=== PATIENT | female | born 1965 | race Caucasian/White ===

== ENCOUNTER → 2016-12-09 | Outpatient (CLI) | payer BC ==
[~2016-12-09] MED LIST: LRT5 PO
--- NOTE | 2016-12-09 12:34 | MAMMOGRAPHY REPORT ---
BILATERAL DIGITAL SCREENING MAMMOGRAM TOMOSYNTHESIS WITH CAD: 12/09/2016 CLINICAL HISTORY: Routine screening. Patient has no complaints. TECHNIQUE: Breast tomosynthesis in addition to standard 2D mammography was performed. Current study was also evaluated with a Computer Aided Detection (CAD) system. COMPARISON: Comparison is made to exams dated: 12/05/2015 mammogram, 12/01/2014 mammogram, 06/30/2014 b reast MRI, 06/27/2014 ultrasound, 06/27/2014 mammogram, and 12/14/2013 ultrasound - [facility]. BREAST COMPOSITION: The tissue of both breasts is heterogeneously dense, which may obscure small mas ses. FINDINGS: There is a 7 mm focal asymmetry in the 12:00 middle to anterior one third of the left [address], for which additional spot compression tomosynthesis views and possible ultrasound is recommended. No other suspicious mass, architectural distortion or cluster of microcalcifications is seen bilatera lly. IMPRESSION: ACR BI-RADS CATEGORY 0: INCOMPLETE EVALUATION: NEED ADDITIONAL IMAGING EVALUATION The 7 mm focal asymmetry in the 12:00 left breast needs additional evaluation. The patient will be called to schedule an appointment. Approximately 10% of breast cancers are not detected with mammography. A negative mammographic report should not delay biopsy if a clinically suggestive mass is present. Sera Soria M.D. ay/:12/09/2016 10:10:28 Svp Operations: Alejandrina Vitale, [facility] letter sent: Addl Imaging 0 BI-RADS Code: ACR BI-RADS Category 0: Incomplete Evaluation: Need Additional Imaging Evaluation
== END | disposition home or self-care (01) ==
LOC: C.MAMM 08:20
PROVIDERS: ATTEND Obstetrics & Gynecology
DX: Z12.31 Encounter for screening mammogram for malignant neoplasm of breast (principal); N64.89 Other specified disorders of breast

== ENCOUNTER → 2016-12-18 | Outpatient (CLI) | payer BC ==
--- NOTE | 2016-12-18 13:40 | MAMMOGRAPHY REPORT ---
UNILATERAL LEFT DIGITAL DIAGNOSTIC MAMMOGRAM TOMOSYNTHESIS AND TARGETED LEFT ULTRASOUND: 12/18/2016 CLINICAL HISTORY: Call back from screening mammography for a 7 mm focal asymmetry in the 12:00 left b reast. TECHNIQUE: Spot compression left CC and MLO 2-D and tomosynthesis images were obtained. COMPARISON: Comparison is made to exams dated: 12/05/2015 mammogram, 12/01/2014 mammogram, 06/27/2014 u ltrasound, 06/27/2014 mammogram, and 12/14/2013 ultrasound - [facility]. BREAST COMPOSITION: There are scattered areas of fibroglandular density in the left breast. FINDINGS: The additional spot compression 2-D and tomosynthesis views of the left breast demonstrate effacement of the 7 mm focal asymmetry in the 12:00 anterior left breast. There is no evidence of a persistent mass or architectural distortion in the visualized left breast. No suspicious cluster of microcalcifications. Targeted ultrasound was performed in the left breast 12:00, retroareolar and 6:00 axes. Sonographica lly normal tissue is seen without a discrete solid or cystic mass. IMPRESSION: ACR BI-RADS CATEGORY 2: BENIGN, TARGETED ULTRASOUND ACR BI-RADS CATEGORY 2: BENIGN There is effacement of the 7 mm focal asymmetry in the 12:00 left breast, and no suspicious sonograph ic correlate. This most likely represented overlapping fibroglandular tissue. There is no mammograp hic or targeted sonographic evidence of malignancy. Return to annual mammogram screening schedule is recommended. The patient has been verbally notified of the results. Approximately 10% of breast cancers are not detected with mammography. A negative mammographic report should not delay biopsy if a clinically suggestive mass is present. Sera Soria M.D. ay/:12/18/2016 09:54:39 Vaccine Specialist: Vanessa BURNS)(Demetra), [facility] letter sent: Normal 1/2 BI-RADS Code: ACR BI-RADS Category 2: Benign Ultrasound BI-RADS: ACR BI-RADS Category 2: Benign
== END | disposition home or self-care (01) ==
LOC: C.MAMM 08:29
PROVIDERS: ATTEND Obstetrics & Gynecology
DX: N64.89 Other specified disorders of breast (principal)

== ENCOUNTER → 2017-02-10 | Outpatient (CLI) | payer BC | END | disposition home or self-care (01) | LOC: C.PAPS 12:51 | PROVIDERS: ATTEND Obstetrics & Gynecology | DX: Z01.411 Encounter for gynecological examination (general) (routine) with abnormal findings (principal); R87.610 Atypical squamous cells of undetermined significance on cytologic smear of cervix (ASC-US) ==

== ENCOUNTER → 2017-06-20 | Outpatient (CLI) | payer BC | END | disposition home or self-care (01) | LOC: C.CPL 11:06 | PROVIDERS: ATTEND Surgery | DX: Z01.818 Encounter for other preprocedural examination (principal); L72.9 Follicular cyst of the skin and subcutaneous tissue, unspecified ==

== ENCOUNTER → 2017-07-04 | Day surgery (SDC) | payer BC ==
[2017-06-09 13:38] VITALS: Ht 160 cm; Wt 59.5 kg
[~2017-07-04] VITALS: Ht 160 cm; Wt 59.5 kg
[~2017-07-04] MED LIST changes: +ATROPINE SULFATE 0.1 MG/ML 5ML SYR IV PRN; +CEFOXITIN SOD 2000MG IV SCH; +EpHEDrine SULFATE INJ 50 MG/ML AMP IV PRN; +FENTANYL CITRATE INJ 50 MCG/1 ML 2 ML VIAL IV PRN; +FENTANYL CITRATE INJ 50 MCG/1 ML 2 ML VIAL ONE; +HYDR-5688 PO; +HYDROCODONE/ACETAMIN 5/325MG TAB PO PRN; +LACTATED RINGER'S 1000ML 1,000 ML IV SCH; +LIDOCAINE HCL 1% 20 ML VIAL ONE; +LIDOCAINE HCL 2% 2 ML VIAL (20MG/ML) ONE; -LRT5 PO; +MIDAZOLAM HCL 1 MG/ML 2ML VIAL ONE; +ONDANSETRON INJ 2 MG/ML 2 ML VIAL IV PRN; +PROPOFOL IV EMULSION 10 MG/ML 20 ML VIAL IV ONE; +SODIUM CHLORIDE 0.9% 1000ML 1,000 ML IV SCH
--- NOTE | 2017-07-04 10:16 | History & Physical Bridge - SC ---
H&P Re-Evaluation Bridge Note: I have examined the patient, reviewed the History & Physical and in the interval since the performance of the History & Physical I have noted the following changes of clinical significance: No changes noted
--- NOTE | 2017-07-04 11:46 | [facility] Operative Report ---
Operative Report Operative Date Jul 04, 2017. Pre-Operative Diagnosis Perianal Masses Post-Operative Diagnosis Same Procedure(s) Performed Perianal Mass (X1) Excision Surgeon Dr. Schumacher Chief Nuclear Medicine Technologist Surgeon(s) None Estimated Blood Loss 5cc Findings skin nodule Specimens A) Perianal Skin Lesion Drains None Anesthesia Type MAC Complication(s) none Disposition Recovery Room / PACU I attest to the content of the Intraoperative Record and any orders documented therein. Any exceptions are noted below.
[2017-07-04 11:52] VITALS: TEMP 36.3
--- NOTE | 2017-07-04 11:54 | Discharge Instructions-SurgCtr ---
Discharge Instructions Date of Service Jul 04, 2017. Visit Reason for Visit: Perianal Masses Discharge Discharge Diagnosis / Problem: perianal nodule Discharge Goals Goal(s): Decrease discomfort, Improve function, Improve disease control Activity Recommendations Activity Limitations: as noted below Lifting Limitations: gradually increase as tolerated Exercise/Sports Limitations: until after follow-up appointment May Resume Sexual Activity: when tolerated Shower/Bathe: tomorrow Driving or Machine Use: resume 1 day after discharge Anesthesia . Post Anesthesia Instructions: If you have had General Anesthesia or IV Sedation: * Do not drive today. * Resume driving when surgeon permits. * Do not make important decisions or sign legal documents today. * Call surgeon for: 1. Temperature elevations greater than 101 degrees F. 2. Uncontrollable pain. 3. Excessive bleeding. 4. Persistent nausea and vomiting. 5. Medication intolerance (nausea, vomiting or rash). * For nausea and vomiting use only clear liquids such as: tea, soda, bouillon until nausea subsides, then gradually increase diet as tolerated. * If you have any concerns or questions, call your surgeon's office. If physician is unavailable and it is an emergency, call 911 or go to the nearest emergency room. . Instructions / Follow-Up Instructions / Follow-Up SPECIAL CARE INSTRUCTIONS: * Cover incisions and change daily for comfort/drainage. May need a pad for 1- 2 weeks * May use ibuprofen for pain as tolerated. * Expect some swelling and bruising. Call your doctor if: * Temperature above 101 degrees * Pain not relieved by pain medicine ordered * There is increased drainage or redness from any incision * You have any unanswered questions or concerns [phone]. FOLLOW UP VISIT: If not already scheduled, please call the office for a follow-up visit. for 2 weeks- check up OFFICE PHONE NUMBER: Dr. Schumacher Office Diet Recommendations Home Diet: resume previous diet Procedures Procedures Performed: Perianal Mass (X1) Excision Pending Studies Studies pending at discharge: no Medical Emergencies . Who to Call and When: Medical Emergencies: If at any time you feel your situation is an emergency, please call 911 immediately. . Non-Emergent Contact Non-Emergency issues call your: Primary Care Provider, Surgeon . . "Provider Documentation" section prepared by Donnell Schumacher. .
[2017-07-04 12:24] VITALS: BP 105/70; PULSE 54; O2SAT 100
--- NOTE | 2017-07-04 12:28 | Anesthesia Progress Nt - [facility] ---
Anesthesia Post Op Note Date & Time Jul 04, 2017 at 12:28 Vital Signs Pain Intensity: 0 Vital Signs Past 12 Hours Date Time Temp Pulse Resp B/P (MAP) Pulse Ox O2 Delivery O2 Flow Rate FiO2 07/04/17 11:59 61 14 90/58 (69) 98 Room Air 07/04/17 11:52 36.3 65 14 88/52 (64) 98 Room Air 07/04/17 10:04 36.9 58 16 126/62 (83) 99 Room Air Notes Mental Status: alert / awake / arousable, participated in evaluation Pt Amnestic to Procedure: Yes Nausea / Vomiting: adequately controlled Pain: adequately controlled Airway Patency, RR, SpO2: stable & adequate BP & HR: stable & adequate Hydration State: stable & adequate Anesthetic Complications: no major complications apparent
--- NOTE | 2017-07-04 12:48 | OPERATIVE REPORT ---
DATE OF OPERATION: 07/04/2017 NAME OF OPERATION: Excision of 2 cm perianal lesion. PREOPERATIVE DIAGNOSIS: Perianal skin lesion. POSTOPERATIVE DIAGNOSIS: Same. STAFF SURGEON: Dr. Schumacher. ANESTHESIA: Sedation with 1% plain lidocaine. PROCEDURE: The patient was placed on the operating room table in the prone position. Her buttocks were gently taped apart. She had a skin nodule on the right perianal area. The skin and subcutaneous tissue were anesthetized using 1% plain lidocaine and then the nodule excised. It was approximately 2 cm in length, sent for routine pathology. The skin was then reapproximated using interrupted 4-0 chromic suture. Dressing applied and patient transferred to recovery room in stable condition. I attest to the content of the Intraoperative Record and any orders documented therein. Any exception s are noted below.
== END | disposition home or self-care (01) ==
LOC: X.SURG 09:48
PROVIDERS: ATTEND Surgery
DX: L72.0 Epidermal cyst (principal); F17.200 Nicotine dependence, unspecified, uncomplicated; Z82.49 Family history of ischemic heart disease and other diseases of the circulatory system; Z83.3 Family history of diabetes mellitus; Z82.3 Family history of stroke; Z80.3 Family history of malignant neoplasm of breast

== ENCOUNTER 2024-07-29 23:47 | Observation (INO) ==
--- NOTE | 2024-07-30 00:12 | Emergency Department Note ---
History of Present Illness General Chief complaint: Hip Pain Stated complaint: PAIN ALONG RIGHT HIP DOWN INTO ABD AREA Time Seen by Provider: 07/30/24 00:05 History of Present Illness Maximum Pain Intensity: 5 This 59-year-old female with a history of kidney stones presents ER complaining of right lower quadrant flank pain since this morning that is steadily getting worse. Patient denies chest pain, dyspnea, fevers, vomiting, diarrhea, urinary symptoms. No rash. No injury to the area. She states this feels different than her kidney stone pain. Home Medications Medication Instructions Recorded Confirmed Type No Known Home Medications 07/30/24 07/30/24 History Allergies Allergy/AdvReac Type Severity Reaction Status Date / Time cefdinir Allergy Intermediate Abdominal Verified 12/08/23 09:14 Pain vaccine adjuvant system, Allergy Intermediate Hives Verified 12/05/23 12:31 AS01B liposomal [From Shingrix (PF)] varicella-zoster virus Allergy Intermediate Hives Verified 12/05/23 12:31 glycoprotein E, recombinant [From Shingrix (PF)] latex Allergy Mild Rash Verified 07/30/24 00:33 gold Au 198 Allergy discovered Verified 12/05/23 12:31 w/recent allergy testing Past Med/Surg History Problem List (Updated 07/30/24 @ 03:59 by Sandra Bello PA-C) Pyelonephritis (Acute) Ureterolithiasis (Acute) Renal colic on right side (Acute) Nephrolithiasis History of colon polyps Dysphagia Rash Chronic idiopathic urticaria Chronic rhinitis Lisy's thyroiditis (Chronic) Medical History Lisy's thyroiditis Chronic rhinitis Chronic idiopathic urticaria Cerumen impaction hx Adenomatous polyps hx History of kidney stones no sx 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" Thyroid goiter monitored Thyroid nodule monitored ASCUS of cervix with negative high risk HPV hx Low grade squamous intraepithelial lesion (LGSIL) on Papanicolaou smear of cervix hx Surgical History Hx of colonoscopy 06/2020 History of wisdom tooth extraction H/O laparoscopy x4 for endometriosis H/O excision of mass perianal S/P dilation and curettage History of loop electrical excision procedure (LEEP) 07/1999 H/O colposcopy with cervical biopsy Family History Grandmother (Maternal) Ovarian cancer Diabetes Breast cancer Aunt Breast cancer maternal aunt Colorectal cancer paternal aunt Father Cardiac disorder Myocardial infarction Hypertension Grandmother (Paternal) Stroke Aunt Thyroid disease Mother Gallbladder disease Leukemia Sister Gallbladder disease Other No family history of adverse response to anesthesia Pancreatic cancer Denies family history of Prostate cancer Uterine cancer Social History Smoking Status: Current every day smoker Tobacco Type: Cigarettes Age Started Using Tobacco: 27; packs per day: 1; Cigarettes Per Day: 20; Second Hand Exposure: Yes (hx as child); Do You Dip or Chew Tobacco: No; Hx Alcohol Use: Yes (in the past only) Hx Substance Use: No Preferred Language: Korean Communication Ability: Effective Visual Impairment: No Limitations Hearing Ability: Normal Qa Tester Required: No Beliefs That Will Affect Care: None marital status: Current Living Situation: Alone current occupational status: employed current occupation: Accounting Feels Safe at Home: Yes Childhood Exposure to Second-Hand Smoke: Yes Diet: regular caffeine: Yes during the past year weight has: remained stable Dental Care, Regularly: Yes Physical Activity Frequency: 1-2 Times per Week Seatbelt Use: always Sunscreen Use: Yes ("I try to.") Assistive Devices: Glasses Review of Systems A total of 10 systems reviewed and were otherwise negative Physical Exam Vital Signs Vital Signs - 24 hr 07/29/24 23:49 07/30/24 00:14 07/30/24 00:14 Temperature 36.4 C L 36.8 C Temperature Source Temporal Artery Scan Oral Pulse Rate 74 80 Pulse Rate [Right Finger] 79 Pulse Rate from SpO2 Sensor Respiratory Rate 16 20 20 Respiratory Effort / Characteristics Non-Labored Spontaneous Respiratory Depth Normal Normal Blood Pressure 155/77 H Blood Pressure [Right Arm] 141/82 H Blood Pressure Mean 103 Blood Pressure Mean [Right Arm] 101 Pulse Oximetry 97 97 97 Oxygen Delivery Method Room Air Room Air Room Air Sepsis Recent Fever Within 48 Hours No Sepsis New/Unexplained Change in Mental Status No Sepsis Action Taken by Nursing No Action Required 07/30/24 02:00 07/30/24 03:00 Temperature Temperature Source Pulse Rate 67 Pulse Rate [Right Finger] Pulse Rate from SpO2 Sensor 66 Respiratory Rate 19 16 Respiratory Effort / Characteristics Non-Labored Spontaneous Respiratory Depth Normal Blood Pressure 120/85 Blood Pressure [Right Arm] 103/61 Blood Pressure Mean 96 Blood Pressure Mean [Right Arm] 75 Pulse Oximetry 97 93 Oxygen Delivery Method Room Air Sepsis Recent Fever Within 48 Hours Sepsis New/Unexplained Change in Mental Status Sepsis Action Taken by Nursing VITALS: Vitals are noted on the nurse's note and reviewed by myself. Vital signs stable. GENERAL: Pleasant patient, in no acute distress, nondiaphoretic, well-developed well-nourished. SKIN: Capillary reflex less than 2 seconds. HEENT: Normocephalic. PERRLA. EOMI. Nares patent. Mucous membranes moist. Neck is supple without nuchal rigidity. HEART: Regular rate and rhythm LUNGS: Clear to auscultation bilaterally without wheezes, rales or rhonchi. No retractions or accessory muscle use. ABDOMEN: Positive bowel sounds x 4. Normal tympanic percussion. Soft, tender to palpation right lower quadrant, no rash, without masses or organomegaly. Snider sign negative. No guarding or rebound tenderness. no CVA tenderness MUSCULOSKELETAL: No gross musculoskeletal defects. NEURO: Patient was alert and oriented to person place and time. No focal neurological deficits. Course Administered Medications Discontinued Medications Sodium Chloride (Nss) 1,000 mls @ 999 mls/hr IV .Q1H1M STA Stop: 07/30/24 01:10 Last Infusion: 07/30/24 01:15 Dose: Infused Documented By: Admin: 07/30/24 00:34 Dose: 999 mls/hr Documented By: LOUIE Acetaminophen (Ofirmev) 1,000 mg in 100 mls @ 400 mls/hr IV NOW STA Stop: 07/30/24 00:24 Last Infusion: 07/30/24 01:07 Dose: Infused Documented By: Admin: 07/30/24 00:33 Dose: 400 mls/hr Documented By: LOUIE Piperacillin Sod/Tazobactam Sod (Zosyn) 4.5 gm in 100 mls @ 200 mls/hr IV NOW ONE; Protocol Stop: 07/30/24 01:25 Last Infusion: 07/30/24 01:56 Dose: Infused Documented By: Admin: 07/30/24 01:21 Dose: 200 mls/hr Documented By: LOUIE Ioversol (Optiray 320 100ml) 93 ml IV ONCE ONE Stop: 07/30/24 01:27 Last Admin: 07/30/24 01:26 Dose: 93 ml Documented By: VICKY Ondansetron HCl (Ondansetron Inj 2 Mg/Ml 2 Ml Vial) 4 mg IV NOW STA Stop: 07/30/24 00:11 Last Admin: 07/30/24 00:34 Dose: 4 mg Documented By: LOUIE Medical Decision Making Medical Records Attestation: I reviewed the patient's medical records. Home Medications Current Medication List: was personally reviewed by me Laboratory Data Attestation: I reviewed the patient's lab results. 07/30/24 00:24 07/30/24 00:24 Lab Results 07/30/24 07/30/24 Range/Units 00:15 00:24 WBC 13.75 H (4.8-10.8) K/ul RBC 4.18 L (4.20-5.40) M/uL Hgb 13.5 (12.0-16.0) g/dl Hct 39.9 (37.0-47.0) % MCV 95.5 (80.0-100.0) fL MCH 32.3 (25.0-34.0) pg MCHC 33.8 (32.0-36.0) g/dL RDW Std Deviation 46.3 (36.4-46.3) fL RDW Coeff of Marc 13.2 (11.5-14.5) % Plt Count 317 (130-400) K/uL MPV 9.5 (9.4-12.4) fL Immature Gran % (Auto) 0.4 % Neut % (Auto) 83.6 % Lymph % (Auto) 9.7 % Sauk % (Auto) 4.9 % Eos % (Auto) 1.2 % Baso % (Auto) 0.2 % Neut # (Auto) 11.50 H (1.40-6.50) K/uL Lymph # (Auto) 1.33 (1.20-3.40) K/uL Sauk # (Auto) 0.67 H (0.11-0.59) K/uL Eos # (Auto) 0.17 (0.00-0.50) K/uL Baso # (Auto) 0.03 (0.00-0.20) K/uL Immature Gran # (Auto) 0.05 (0.01-0.20) K/uL Sodium 140 (136-145) mmol/L Potassium 4.0 (3.5-5.1) mmol/L Chloride 107 (98-107) mmol/L Carbon Dioxide 26 (21-32) mmol/L Anion Gap 7 (3-11) BUN 22 (6-23) mg/dl Creatinine 0.99 (0.6-1.2) mg/dl Est Cr Clr Drug Dosing 58.4 ml/min eGFR 66.51 BUN/Creatinine Ratio 22.2 H (10-20) Glucose 115 H (70-99(Fasting)) mg/dl Calcium 9.7 (8.6-10.3) mg/dl Total Bilirubin 0.5 (0.2-1.0) mg/dl AST 16 (13-39) U/L ALT 12 (7-52) U/L Alkaline Phosphatase 85 (34-104) U/L Total Protein 7.4 (6.0-8.3) gm/dl Albumin 4.5 (3.4-5.0) gm/dl Globulin 2.9 (2.5-4.0) gm/dl Albumin/Globulin Ratio 1.6 (0.9-2) Lipase 9 L (11-82) U/L Urine Color Yellow Urine Appearance Cloudy A (Clear) Urine pH 5.5 (4.5-7.5) Ur Specific Correll 1.014 (1.000-1.030) Urine Protein Trace H (Negative) Urine Glucose (UA) Negative (Negative) Urine Ketones Negative (Negative) Urine Blood 3+ H (Negative) Urine Nitrite Negative (Negative) Urine Bilirubin Negative (Negative) Urine Urobilinogen Negative (Negative) Ur Leukocyte Esterase 3+ H (Negative) Urine WBC (Auto) >50 H (0-5) /hpf Urine RBC (Auto) >20 H (0-2) /hpf U Hyaline Cast (Auto) 0-2 (0-2) /lpf U Epithel Cells (Auto) 6-10 H (0-2) /hpf Urine Bacteria (Auto) None Seen (None Seen) Urine Comment Imaging Data Attestation: I personally reviewed and interpreted this imaging study as follows: Radiologist's Impression: Abdomen/Pelvis CT 07/30/24 00:11 EXAM: CT abd pelvis IV con only CLINICAL HISTORY: rlq pain TECHNIQUE: Multiple contiguous axial images were obtained from the level of diaphragm to the pubis symphysis. This study was acquired after the IV administration of iodinated contrast material, given the patient's indications for the examination. If IV contrast material had not been administered, the likelihood of detecting abnormalities relevant to the patient's condition would have been substantially decreased. Coronal and sagittal reformatted images were generated and reviewed to improve anatomic localization and optimize lesion detection. CT scan was performed according to ALARA (as low as reasonably achievable). COMPARISON: 12/04/2023 09:26:13 WIND TUNNEL TECHNICIAN FINDINGS: The visualized lung bases shows mild emphysematous changes. ABDOMEN/PELVIS: The liver is normal in size and attenuation. No focal liver lesions are seen. There is no intra or extrahepatic biliary ductal dilatation. Hepatic vasculature is patent. The gallbladder is unremarkable. The spleen, pancreas, and adrenal glands are unremarkable. The kidneys are normal in size and attenuation. No renal masses are identified. A calculus of size 4mm(HU~734) seen at right lower ureter at S2/S3 vertebral level causing mild to moderate upstream hydroureteronephrosis. A 4.2mm calculus(HU~478) seen at lower pole calyx and a 2mm calculus at upper pole calyx of left kidney. The bladder is normal in contour. No evidence of focal or diffuse bowel wall thickening or evidence of bowel obstruction is seen. No evidence of inflamed appendix. Uterus and adnexa are unremarkable. No adenopathy or fluid collections are seen. The aorta is normal in caliber. No aggressive appearing osseous lesions are identified. IMPRESSION: 1. Right lower ureter calculus causing mild to moderate upstream hydroureteronephrosis. New finding. Advised CT urography correlation. 2. Non-obstructing left nephrolithiasis- stable Electronically signed by Td Magdaleno 07-30-2024 03:08 AM [facility] Narrative Prior records/ancillary studies reviewed. Triage Nursing notes reviewed. Additional history obtained from nursing The patient's history was concerning for abdominal pain. Differential diagnosis: Etiologies such as appendicitis, diverticulitis, PUD, biliary pathology, UTI, pancreatitis, obstruction, mesenteric ischemia, aortic pathology, infections, inflammatory bowel disease, renal colic, as well as others were entertained. Physical examination findings: As above. ER treatment provided: An order was placed for continuous cardiac monitoring. The monitor shows a rate of 60-100 with a sinus rhythm per my Independent interpretation. IV fluids Zofran and Tylenol were ordered Zosyn was ordered for possible kidney infection No prior urine culture for review On reassessment the patient felt better. Diagnostics interpreted by me: The labs Independently Interpreted by myself revealed leukocytosis Urine concerning for infection sent for culture. No prior culture for review Imaging studies: Imaging was reviewed and read by radiology Consultation: A consultation was placed with the urology team. The case was discussed and diagnostics were reviewed. The patient was evaluated in the ER for further treatment. They recommend antibiotics and medical admission. Consultation was placed with medicine and the case discussed. Patient is admitted to the medical service. Exam and history seem consistent with UTI with concerns for pyelonephritis with a kidney stone. Patient was started on antibiotics awaiting CAT scan results for the urine/kidney infection. Prior cultures were reviewed. She has a cephalosporin allergy. She was given Zosyn. Urology and medicine were consulted and the case was discussed. Patient was admitted to the medical service. Patient is agreeable. By the evaluation outlined above emergent etiologies such as appendicitis, diverticulitis, PUD, biliary pathology, pancreatitis, obstruction, mesenteric ischemia, aortic pathology, inflammatory bowel disease, as well as others were deemed relatively unlikely. The pt informed about the findings as listed above. All questions were answered and pleased with the treatment. The chart was completed utilizing [employer] Speech voice recognition software. Grammatical errors, random word insertions, pronoun errors, and incomplete sentences are an occassional consequence of this system due to software limitations, ambient noise, and hardware issues. Any formal questions or concerns about the content, text, or information contained within the body of this dictation should be directly addressed to the physician product safety technical assistant for clarification. Impression & Plan Renal colic on right side, Ureterolithiasis, Pyelonephritis Discharge Plan Visit Data Chief Complaint: Hip Pain Stated Complaint: PAIN ALONG RIGHT HIP DOWN INTO ABD AREA ED Provider: Yi Bob ED Midlevel Provider: Sandra Bello Discharge Problem: Renal colic on right side, Ureterolithiasis, Pyelonephritis Patient Disposition: Admitted As Inpatient Condition: Good Forms Stand Alone Forms: [employer] Prescriptions Prescriptions: No Action No Known Home Medications Referrals Referrals: Jovan Almeida III, CRNP [Primary Care Provider] -
[2024-07-30 00:40] LABS: Basophils # (auto) 0.03 K/uL (0.00-0.20); Basophils % (auto) 0.2 %; Eosinophils # (auto) 0.17 K/uL (0.00-0.50); Eosinophils % (auto) 1.2 %; Hematocrit (blood only) 39.9 % (37.0-47.0); Hemoglobin 13.5 g/dl (12.0-16.0); Immature Granulocytes # (auto) 0.05 K/uL (0.01-0.20); Immature Granulocytes % (auto) 0.4 %; Lymphocytes # (auto) 1.33 K/uL (1.20-3.40); Lymphocytes % (auto) 9.7 %; Mean Corpuscular Hemoglobin 32.3 pg (25.0-34.0); Mean Corpuscular Hgb Conc 33.8 g/dL (32.0-36.0); Mean Corpuscular Volume 95.5 fL (80.0-100.0); Mean Platelet Volume 9.5 fL (9.4-12.4); Monocytes # (auto) 0.67 K/uL (0.11-0.59); Monocytes % (auto) 4.9 %; Neutrophils % (auto) 83.6 %; Platelet Count 317 K/uL (130-400); RDW Coefficient of Variation 13.2 % (11.5-14.5); RDW Standard Deviation 46.3 fL (36.4-46.3); Red Blood Count 4.18 M/uL (4.20-5.40); White Blood Count 13.75 K/ul (4.8-10.8)
[2024-07-30 00:52] LABS: Appearance Urine Cloudy (Clear); Bacteria Urine Automated None Seen (None Seen); Bilirubin Urine Negative (Negative); Blood Urine 3+ (Negative); Cast Urine Automated 0-2 /lpf (0-2); Color Urine Yellow; Glucose Urine UA Negative (Negative); Ketones Urine Negative (Negative); Leukocyte Esterase Urine 3+ (Negative); Nitrite Urine Negative (Negative); Protein Urine Trace (Negative); RBC Urine Automated >20 /hpf (0-2); Specific Gravity Urine 1.014 (1.000-1.030); Urobilinogen Urine Negative (Negative); WBC Urine Automated >50 /hpf (0-5); pH Urine 5.5 (4.5-7.5)
[2024-07-30 00:57] LABS: Albumin Globulin Ratio 1.6 (0.9-2); Albumin Level 4.5 gm/dl (3.4-5.0); BUN Creatinine Ratio 22.2 (10-20); Bilirubin,Total 0.5 mg/dl (0.2-1.0); Calcium 9.7 mg/dl (8.6-10.3); Creatinine Clr Calc Pharmacy 58.4 ml/min; Globulin 2.9 gm/dl (2.5-4.0); Total Protein 7.4 gm/dl (6.0-8.3)
--- NOTE | 2024-07-30 03:08 | CT Scan Report ---
EXAM: CT abd pelvis IV con only CLINICAL HISTORY: rlq pain TECHNIQUE: Multiple contiguous axial images were obtained from the level of diaphragm to the pubis symphysis. This study was acquired after the IV administration of iodinated contrast material, given the patient's indications for the examination. If IV contrast material had not been administered, the likelihood of detecting abnormalities relevant to the patient's condition would have been substantially decreased. Coronal and sagittal reformatted images were generated and reviewed to improve anatomic localization and optimize lesion detection. CT scan was performed according to ALARA (as low as reasonably achievable). COMPARISON: 12/04/2023 09:26:13 TECHNICAL LABORATORY ASST FINDINGS: The visualized lung bases shows mild emphysematous changes. ABDOMEN/PELVIS: The liver is normal in size and attenuation. No focal liver lesions are seen. There is no intra or extrahepatic biliary ductal dilatation. Hepatic vasculature is patent. The gallbladder is unremarkable. The spleen, pancreas, and adrenal glands are unremarkable. The kidneys are normal in size and attenuation. No renal masses are identified. A calculus of size 4mm(HU~734) seen at right lower ureter at S2/S3 vertebral level causing mild to moderate upstream hydroureteronephrosis. A 4.2mm calculus(HU~478) seen at lower pole calyx and a 2mm calculus at upper pole calyx of left kidney. The bladder is normal in contour. No evidence of focal or diffuse bowel wall thickening or evidence of bowel obstruction is seen. No evidence of inflamed appendix. Uterus and adnexa are unremarkable. No adenopathy or fluid collections are seen. The aorta is normal in caliber. No aggressive appearing osseous lesions are identified. IMPRESSION: 1. Right lower ureter calculus causing mild to moderate upstream hydroureteronephrosis. New finding. Advised CT urography correlation. 2. Non-obstructing left nephrolithiasis- stable Electronically signed by Td Magdaleno 07-30-2024 03:08 AM
--- NOTE | 2024-07-30 03:44 | Urology Consultation ---
Date of Consultation July 30, 2024 Assessment & Plan (1) Nephrolithiasis: At the request of the emergency room clinician I evaluated the patient in room C10. The patient is going to be admitted on the hospitalist service. From a urologic perspective we recommend the following: I reviewed the patient's CT scan findings with her informing her that she had a kidney stone measuring approximately 4 mm Also formed her that she had a urinalysis that was suggestive of urinary tract infection and the clinician the emergency department recommend admission to the hospital Antibiotics in form of Zosyn have been initiated and should continue Urine culture has been sent and this will be followed for antibiotics be tailored based on these results Provide analgesics Provide antiemetics Follow serial labs Keep n.p.o. for the present time Provide IV fluid for hydration Initiate Flomax for expulsive therapy At the present time the patient is normotensive without tachycardia, fever, or acute kidney injury. I therefore feel a trial of conservative management as outlined above is warranted. The patient will be evaluated by her dayshift team on 07/30/2024 and a determination will be made if patient will require cystoscopic intervention Additional recommendations to be forthcoming based on her clinical course as unfolds History of Present Illness Reason for Consultation: Nephrolithiasis History of Present Illness This is a 59-year-old female who presented to the emergency department secondary to right-sided flank pain. She says that the pain radiated to the right lower quadrant somewhat. She denies any nausea or vomiting. She specifically denies any fevers, shakes, or chills. She denies any dysuria, urinary frequency or hematuria. Patient says that she has had kidney stones in the past but she was able to successfully pass them without any procedural intervention. She does not regularly follow with the urologist. Since arrival to the hospital patient has had labs and imaging which have been reviewed. A CT scan of the abdomen pelvis showed the patient had a right lower ureteral calculi measure approximately 4 mm causing moderate hydronephrosis. Labs included CBC white blood cell count is elevated 13.7. Hemoglobin, macro, platelet count are normal. Chemistry profile showed sodium and potassium are normal. BUN and creatinine were normal. Urinalysis showed cloudy urine which was negative for nitrites. She had 3+ leukocyte Estrace and pyuria with greater than 50 white blood cells per high-power field. There is no bacteria noted on the study. At the time of my interview the patient was resting comfortably in bed and she was no distress. Allergies Allergy/AdvReac Type Severity Reaction Status Date / Time cefdinir Allergy Intermediate Abdominal Verified 12/08/23 09:14 Pain vaccine adjuvant system, Allergy Intermediate Hives Verified 12/05/23 12:31 AS01B liposomal [From Shingrix (PF)] varicella-zoster virus Allergy Intermediate Hives Verified 12/05/23 12:31 glycoprotein E, recombinant [From Shingrix (PF)] latex Allergy Mild Rash Verified 07/30/24 00:33 gold Au 198 Allergy discovered Verified 12/05/23 12:31 w/recent allergy testing Home Medications Medication Instructions Recorded Confirmed Type No Known Home Medications 07/30/24 07/30/24 History Patient History Medical History Lisy's thyroiditis Chronic rhinitis Chronic idiopathic urticaria Cerumen impaction hx Adenomatous polyps hx History of kidney stones no sx 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" Thyroid goiter monitored Thyroid nodule monitored ASCUS of cervix with negative high risk HPV hx Low grade squamous intraepithelial lesion (LGSIL) on Papanicolaou smear of cervix hx Surgical History Hx of colonoscopy 06/2020 History of wisdom tooth extraction H/O laparoscopy x4 for endometriosis H/O excision of mass perianal S/P dilation and curettage History of loop electrical excision procedure (LEEP) 07/1999 H/O colposcopy with cervical biopsy Family History Grandmother (Maternal) Ovarian cancer Diabetes Breast cancer Aunt Breast cancer maternal aunt Colorectal cancer paternal aunt Father Cardiac disorder Myocardial infarction Hypertension Grandmother (Paternal) Stroke Aunt Thyroid disease Mother Gallbladder disease Leukemia Sister Gallbladder disease Other No family history of adverse response to anesthesia Pancreatic cancer Denies family history of Prostate cancer Uterine cancer Social History Smoking Status: Current every day smoker Tobacco Type: Cigarettes Age Started Using Tobacco: 27; packs per day: 1; Cigarettes Per Day: 20; Second Hand Exposure: Yes (hx as child); Do You Dip or Chew Tobacco: No; Hx Alcohol Use: Yes (in the past only) Hx Substance Use: No Preferred Language: Luxembourger Communication Ability: Effective Visual Impairment: No Limitations Hearing Ability: Normal Wedding Consultant Required: No Beliefs That Will Affect Care: None marital status: Current Living Situation: Alone current occupational status: employed current occupation: Accounting Feels Safe at Home: Yes Childhood Exposure to Second-Hand Smoke: Yes Diet: regular caffeine: Yes during the past year weight has: remained stable Dental Care, Regularly: Yes Physical Activity Frequency: 1-2 Times per Week Seatbelt Use: always Sunscreen Use: Yes ("I try to.") Assistive Devices: Glasses Review of Systems Review of Systems: All systems reviewed & are unremarkable except as noted in HPI & below Physical Exam Constitutional: WD/WN, vitals as above Eyes: no conjunctival abnormality ENMT: Ears: no hearing impairment and no external ear abnormality Mouth: no oropharynx abnormality Neck: trachea midline Respiratory: normal respiratory effort; no respiratory distress and no labored breathing Cardiovascular: Rate/Rhythm: regular rate and regular rhythm Gastrointestinal (Abdomen): At the time of my exam the patient's abdomen was soft without distention. There is no rigidity, rebound tenderness, guarding, or signs of peritonitis. There is no pain with palpation Musculoskeletal: No gross orthopedic abnormalities Skin: no rashes Neurologic: moves all extremities Psychiatric: A+Ox3, euthymic affect Genitourinary: At the time of my exam the patient had no CVA tenderness with percussion bilaterally Results & Data Vital Signs (Past 12 Hours) Vital Signs Temp Pulse Pulse Resp BP BP Pulse Ox 07/30/24 03:00 67 16 120/85 93 07/30/24 02:00 19 103/61 97 07/30/24 00:14 80 20 97 07/30/24 00:14 36.8 C 79 20 141/82 H 97 07/29/24 23:49 36.4 C L 74 16 155/77 H 97 O2 Del Method 07/30/24 03:00 07/30/24 02:00 Room Air 07/30/24 00:14 Room Air 07/30/24 00:14 Room Air 07/29/24 23:49 Room Air PG Care Time/CCT Total # of Minutes Spent Total Time Spent with Patient: Total time spent is greater than 50% in coordination of care (as documented) at patient's floor/unit and/or counseling patient: Coding Level of Care Code 03247 IN/OBS CONSULT LVL 5,80M Diagnoses Nephrolithiasis N20.0
--- NOTE | 2024-07-30 03:50 | History & Physical Report ---
Date of Service July 30, 2024 Assessment & Plan (1) Nephrolithiasis: (2) Ureterolithiasis: (3) Pyelonephritis: (4) Leukocytosis: Plan Patient is a 59-year-old female without any significant past medical history other than a history of nephrolithiasis. Patient presented due to lower abdominal cramping which transitioned into bilateral 10/10 flank pain. Patient was found to have right nephrolithiasis with moderate hydronephrosis, and left nonobstructing nephrolithiasis. Also found to have white count of 13.75 and UA appears infectious. She is being admitted for IV antibiotics and urology eval for possible cystoscopy. #infected nephrolithiasis - CTAP showing right lower ureter calculus causing mild to moderate upstream hydronephrosis (4mm), nonobstructing left nephrolithiasis (4.2mm). UA 3+ LE,> 50 WBC, >20 RBC. Mild leukocytosis WC 13.75 with neutrophil predominance. VSS, afebrile. - urology consulted - possible cystoscopy - N.p.o. - IVF resuscitation with LR at 100 mL/hour - zosyn given in ED; continue based off urology recommendations - no significant urine cultures on file, not immunocompromised - tamsulosin 0.4mg PO ordered - IV Tylenol prn, morphine 2/4mg for breakthrough pain - Zofran Prn - urine strainer - follow urine cultures - follow blood cultures with leukocytosis - note that these were taken after 1st dose of IVF abx given - Renal function stable, trend BMP - trend cbc - lactate ordered VTE ppx: SCDs, low risk and defer chemical PPx with possible surgical management Dispo: med/telemetry with potential for sepsis Patient would like to return home when able, pain well-controlled with IV Tylenol in the ED. Would like for possible discharge later today 07/30. To be determined based off clinical course further urology eval. Admission and Anticipated Discharge Date Admission Date: 07/30/24 History of Present Illness Chief Complaint: Right flank pain Primary Care Provider: Jovan Almeida, III, [place] Patient is a 59-year-old female without any significant past medical history other than a history of nephrolithiasis. Patient presented due to lower abdominal cramping which transitioned into bilateral 10/10 flank pain. Patient was found to have right nephrolithiasis with moderate hydronephrosis, and left nonobstructing nephrolithiasis. Also found to have white count of 13.75 and UA appears infectious. She is being admitted for IV antibiotics and urology eval for possible cystoscopy. Patient seen at bedside. She endorses the above. She stated she has had kidney stones several times in the past and this felt similar so she came into the ED. She has never required stents in the past. She did have some episodes of nausea, however denies any vomiting and has been able to tolerate p.o. intake at home. The only thing that relieved her pain at home was heat and having a bowel movement, denies any diarrhea. When she tried to go to bed this evening she was having significant left-sided flank pain and cold sweats. She denies any chest pain, shortness of breath. She does use nicotine products, smokes 1 pack/day of cigarettes. She denies any alcohol use. She does not use oxygen at baseline or use any home medications regularly. She wishes to be full code. Patient would like to return home when able, to be determined based off clinical course. her pain is 1/10 after Tylenol in ED. Denies any nausea after Zofran in the ED. Allergies Allergy/AdvReac Type Severity Reaction Status Date / Time cefdinir Allergy Intermediate Abdominal Verified 12/08/23 09:14 Pain vaccine adjuvant system, Allergy Intermediate Hives Verified 12/05/23 12:31 AS01B liposomal [From Shingrix (PF)] varicella-zoster virus Allergy Intermediate Hives Verified 12/05/23 12:31 glycoprotein E, recombinant [From Shingrix (PF)] latex Allergy Mild Rash Verified 07/30/24 00:33 gold Au 198 Allergy discovered Verified 12/05/23 12:31 w/recent allergy testing Home Medications Medication Instructions Recorded Confirmed Type No Known Home Medications 07/30/24 07/30/24 History Past Med/Surg History Problem List (Updated 07/30/24 @ 04:15 by Marsha Harris PA-C) Leukocytosis Pyelonephritis (Acute) Ureterolithiasis (Acute) Renal colic on right side (Acute) Nephrolithiasis History of colon polyps Dysphagia Rash Chronic idiopathic urticaria Chronic rhinitis Lisy's thyroiditis (Chronic) Medical History Lisy's thyroiditis Chronic rhinitis Chronic idiopathic urticaria Cerumen impaction hx Adenomatous polyps hx History of kidney stones no sx 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" Thyroid goiter monitored Thyroid nodule monitored ASCUS of cervix with negative high risk HPV hx Low grade squamous intraepithelial lesion (LGSIL) on Papanicolaou smear of cervix hx Surgical History Hx of colonoscopy 06/2020 History of wisdom tooth extraction H/O laparoscopy x4 for endometriosis H/O excision of mass perianal S/P dilation and curettage History of loop electrical excision procedure (LEEP) 07/1999 H/O colposcopy with cervical biopsy Family History Grandmother (Maternal) Ovarian cancer Diabetes Breast cancer Aunt Breast cancer maternal aunt Colorectal cancer paternal aunt Father Cardiac disorder Myocardial infarction Hypertension Grandmother (Paternal) Stroke Aunt Thyroid disease Mother Gallbladder disease Leukemia Sister Gallbladder disease Other No family history of adverse response to anesthesia Pancreatic cancer Denies family history of Prostate cancer Uterine cancer Social History Smoking Status: Current every day smoker Tobacco Type: Cigarettes Age Started Using Tobacco: 27; packs per day: 1; Cigarettes Per Day: 20; Second Hand Exposure: Yes (hx as child); Do You Dip or Chew Tobacco: No; Hx Alcohol Use: Yes (in the past only) Hx Substance Use: No Preferred Language: Mohawk Communication Ability: Effective Visual Impairment: No Limitations Hearing Ability: Normal Divorce Mediator Required: No Beliefs That Will Affect Care: None marital status: Current Living Situation: Alone current occupational status: employed current occupation: Accounting Feels Safe at Home: Yes Childhood Exposure to Second-Hand Smoke: Yes Diet: regular caffeine: Yes during the past year weight has: remained stable Dental Care, Regularly: Yes Physical Activity Frequency: 1-2 Times per Week Seatbelt Use: always Sunscreen Use: Yes ("I try to.") Assistive Devices: Glasses Review of Systems Review of Systems: See HPI Physical Exam Physical Exam: The patient is awake, alert and oriented 3, well developed and well nourished, normocephalic and atraumatic, in no acute distress. Non-toxic appearing. HEENT- EOMI, mucous membranes moist. Hearing grossly intact. Heart-normal S1 and S2. No murmurs, rubs or gallops. Lungs-clear bilaterally, no respiratory distress, no accessory muscle use. Abdomen-normal bowel sounds and soft. No ascites noted. Non-tender. Extremities- no clubbing, cyanosis, or edema. Rheumatologic-normal range of motion. Psychiatric-normal affect. Results & Data Results & Data Vital Signs (Past 12 Hours) Vital Signs Temp Pulse Pulse Resp BP BP Pulse Ox 07/30/24 03:00 67 16 120/85 93 07/30/24 02:00 19 103/61 97 07/30/24 00:14 80 20 97 07/30/24 00:14 36.8 C 79 20 141/82 H 97 07/29/24 23:49 36.4 C L 74 16 155/77 H 97 O2 Del Method 07/30/24 03:00 07/30/24 02:00 Room Air 07/30/24 00:14 Room Air 07/30/24 00:14 Room Air 07/29/24 23:49 Room Air Laboratory Results Reviewed CBC, CMP, UA, lipase Diagnostic Findings reviewed AP CT Medications Administered EDZosyn 4.5G IV, Tylenol 1G IV, Zofran 4 Mg IV, 1L NSS bolus admission LR at 100 mL/hour Code Status & VTE Plan Code Status full code VTE Prophylaxis Plan VTE Prophylaxis will be ordered: Yes Supervising Physician Co-Signing Physician Notes Patient seen and examined, chart reviewed, case discussed with TRISH Mensah and I agree with the assessment and plan as above. In brief, patient is a 59yo female presenting with 4mm renal stone, possible UTI. Patient is afebrile, HD stable. Pain is controlled now after Tylenol On exam she is resting comfortably, NAD Skin - no rash HEENT - MMM, Neck supple Heart - +S1/S2, regular Lungs -CTA Abd - soft, NT/ND Labs and images reviewed Assessment/Plan -Observation to medical with telemetry -Continue IVF -Urine strainer -Continue Zosyn -Pain control with Morphine and Zofran for nausea as needed -Flomax -Urology consultation appreciated -Remainder as above PG Care Time/CCT Total # of Minutes Spent Total Time Spent with Patient: Total time spent is greater than 50% in coordination of care (as documented) at patient's floor/unit and/or counseling patient: Coding Level of Care Code 15372 INT INP/OBS CARE MIN Diagnoses Nephrolithiasis N20.0 Ureterolithiasis N20.1 Pyelonephritis N12 Leukocytosis D72.829
--- NOTE | 2024-07-30 09:04 | Urology Progress Note ---
<Statement entered by Elliott Culver MD - 07/30/24 10:34> 59-year-old female who presented with a right ureteral stone. Urinalysis was equivocal for UTI, however she remains hemodynamically stable. Not having any pain this morning and KUB suggested passage of the stone. We will hold off on any urologic intervention for now and coordinate outpatient follow-up. Date of Service July 30, 2024 Assessment & Plan (1) Ureterolithiasis: (2) Renal colic on right side: (3) Nephrolithiasis: (4) Leukocytosis: Plan 59-year-old female reported to the ER due to right-sided abdominal pain. Labs reviewed-WBC 13.75, hemoglobin 13.5, glucose 115, creatinine 0.9 CT of the A/P 07/30/2024 shows right lower ureteral calculi 4 mm causing mild to moderate upstream hydroureteronephrosis Urine cultures and blood cultures are pending Recommend broad-spectrum antibiotics and trend according to culture data Patient has been afebrile and hemodynamically stable She is denying any pain at the present time We discussed risks of an obstructing stone including risk of infection, pyelonephritis, sepsis, pain We discussed options including right ureteral stent placement along with risk and benefits We also discussed continued close monitoring as she is currently hemodynamically stable and denies any bothersome urinary or infection symptoms At present time she would like to try spontaneous passage of stone without surgical intervention, agree this is reasonable Unfortunately she did not strain her urine for several hours overnight so she is not sure if she passed the stone We will complete a KUB to see if stone is still present, discussed limitations of the study Patient decompensates she would need right ureteral stent placement Other medical management per primary team Urology will sign out-please recontact our services for any questions or concerns Case was discussed with Dr. Culver Admission and Anticipated Discharge Date Admission Date: July 30, 2024 Subjective Patient resting comfortably in bed Denies fevers, chills, nausea, vomiting No longer having any pain When she reported to the ER last night she was having right-sided lower back radiating to the front pain She has not been straining her urine overnight Denies dysuria or gross hematuria History of passing stone spontaneously unsure of the size Never had surgical intervention on a stone Review of Systems Constitutional: as per Subjective / HPI Genitourinary: as per Subjective / HPI Physical Exam Constitutional: well developed and well nourished; no acute distress Respiratory: normal respiratory effort and able to speak in complete sentences Musculoskeletal: Extremities: extremities normal to inspection Psychiatric: Orientation: alert and oriented x 3 Results & Data Vital Signs (Past 12 Hours) Vital Signs Temp Pulse Pulse Resp BP BP Pulse Ox 07/30/24 08:39 66 19 120/54 L 94 07/30/24 08:26 07/30/24 08:04 70 07/30/24 07:40 75 21 117/76 96 07/30/24 05:32 59 L 07/30/24 04:00 61 16 124/74 94 07/30/24 03:00 67 16 120/85 93 07/30/24 02:00 19 103/61 97 07/30/24 00:14 80 20 97 07/30/24 00:14 36.8 C 79 20 141/82 H 97 07/29/24 23:49 36.4 C L 74 16 155/77 H 97 Pulse Ox O2 Del Method O2 Del Method 07/30/24 08:39 Room Air 07/30/24 08:26 94 Room Air 07/30/24 08:04 07/30/24 07:40 Room Air 07/30/24 05:32 07/30/24 04:00 Room Air 07/30/24 03:00 07/30/24 02:00 Room Air 07/30/24 00:14 Room Air 07/30/24 00:14 Room Air 07/29/24 23:49 Room Air PG Care Time/CCT Total # of Minutes Spent Total Time Spent with Patient: Total time spent is greater than 50% in coordination of care (as documented) at patient's floor/unit and/or counseling patient: Coding Level of Care Code None Diagnoses Ureterolithiasis N20.1 Renal colic on right side N23 Nephrolithiasis N20.0 Leukocytosis D72.829
--- NOTE | 2024-07-30 09:46 | XRay Report ---
KUB HISTORY: stone COMPARISON STUDY: CT of 07/30/2024 FINDINGS: There is moderate retained stool. No bowel obstruction seen. The prior distal right uretera l calculus is no longer seen. Stable few tiny calculi left kidney. IMPRESSION: Right ureteral calculus is no longer seen. ACT 112: Negative or not required by law. The above report was generated using voice recognition software. It may contain grammatical, syntax o r spelling errors. Electronically signed by: Sal Hi M.D. 07/30/2024 9:44 AM
[2024-07-30 11:13] VITALS: BP 98/58; PULSE 61; RESP 18; TEMP 97.9; O2SAT 94
--- NOTE | 2024-07-30 12:40 | Discharge Summary ---
Discharge Summary Date of Service July 30, 2024 Principal Dx & Hospital Course #1 = Principal Diagnosis (1) Nephrolithiasis: (2) Ureterolithiasis: (3) Pyelonephritis: (4) UTI (urinary tract infection): (5) Leukocytosis: Plan Patient is a 59-year-old female without any significant past medical history other than a history of nephrolithiasis. Patient presented due to lower abdominal cramping which transitioned into bilateral 10/10 flank pain. Patient was found to have right nephrolithiasis with moderate hydronephrosis, and left nonobstructing nephrolithiasis. Also found to have white count of 13.75 and UA appears infectious. She was admitted for IV antibiotics and urology evaluation. After discussion of options with urology, patient elected for conservative management. Likely that she passed a stone overnight as she remains asymptomatic at this time, afebrile. #Nephrolithiasis/UTI - CT A/P with right lower ureter calculus causing mild to moderate upstream hydronephrosis (4mm), nonobstructing left nephrolithiasis (4.2mm). UA 3+ LE,> 50 WBC, >20 RBC. Mild leukocytosis WC 13.75 with neutrophil predominance. VSS, afebrile. Lactate normal. Renal function stable. - Pain well controlled with Tylenol - Urine culture and blood cultures pending - Urology consulted and will follow up outpatient - Unfortunately, she did not strain her urine for several hours overnight. Obtained KUB which was suggestive of passage of the right ureteral stone - Discussed waiting for urine culture sensitivities to result and to confirm prelim blood cultures are negative, but patient requested discharge home. Reviewed reasons to return to hospital and patient verbalizes understanding - Treated with Zosyn IV while hospitalized (per urology's recommendation. No significant urine cultures on file, not immunocompromised). Discharged on ciprofloxacin 500 mg twice daily x 7 days VTE ppx: SCDs Dispo: Discharged home 07/30 Notes For Next Care Provider Follow-up as directed with urology outpatient Medication Changes From Visit Ciprofloxacin 500 mg twice daily x 7 days Admission HPI Per Admitting Provider Patient is a 59-year-old female without any significant past medical history other than a history of nephrolithiasis. Patient presented due to lower abdominal cramping which transitioned into bilateral 10/10 flank pain. Patient was found to have right nephrolithiasis with moderate hydronephrosis, and left nonobstructing nephrolithiasis. Also found to have white count of 13.75 and UA appears infectious. She is being admitted for IV antibiotics and urology eval for possible cystoscopy. Patient seen at bedside. She endorses the above. She stated she has had kidney stones several times in the past and this felt similar so she came into the ED. She has never required stents in the past. She did have some episodes of nausea, however denies any vomiting and has been able to tolerate p.o. intake at home. The only thing that relieved her pain at home was heat and having a bowel movement, denies any diarrhea. When she tried to go to bed this evening she was having significant left-sided flank pain and cold sweats. She denies any chest pain, shortness of breath. She does use nicotine products, smokes 1 pack/day of cigarettes. She denies any alcohol use. She does not use oxygen at baseline or use any home medications regularly. She wishes to be full code. Patient would like to return home when able, to be determined based off clinical course. her pain is 1/10 after Tylenol in ED. Denies any nausea after Zofran in the ED. Discharge Exam General: No acute distress, nondiaphoretic, well-developed, well-nourished. Cardiac: Regular rate and rhythm without murmurs gallops or rubs. Pulm: Clear to auscultation bilaterally without wheezes, rales or rhonchi. Normal respiratory effort. 94% on room air. Abdominal: Soft, nontender, nondistended. Bowel sounds present. No suprapubic tenderness. No CVA tenderness bilaterally. Neuro: A&O x3. No focal neurological deficits. Discharge Plan Discharge Items Patient Disposition: Home - Self-Care Reason For Visit: INFECTED NEPHROLITHIASIS Discharge Diagnosis: Bilateral nephrolithiasis with right-sided hydronephrosis UTI Condition on Discharge: Good Activity: Resume your previous activity Non-emergency contact: Primary Care Provider and Urologist Call non-emergency contact if: you have any medication questions, your symptoms worsen, your pain is not controlled and you have a fever Follow-up/Referrals: Jovan Almeida III, CRNP [Primary Care Provider] - (Follow-up in 1-2 weeks) Elliott Culver MD [Physician] - (Follow-up as directed) Diet: Regular Addtl Attending Provider Instructions: Melody, You were admitted to the hospital due to right sided ureteral stone causing moderate hydroureteronephrosis (swelling of your ureter/kidney) and left-sided kidney stones. Your urinalysis was suggestive of a UTI. An x-ray from this morning suggests you passed the right sided ureteral stone. You were treated in the hospital with IV antibiotics for the UTI and will continue taking oral antibiotics at home. Take ciprofloxacin (oral antibiotic) 500 mg twice daily x 7 days. Start taking this antibiotic this evening 07/30. This is to treat your UTI. Is important to complete this antibiotic course even if you feel better. Not finishing your antibiotics can result in the infection returning in/or can make future infections harder to treat. Please follow-up with your PCP in 1-2 weeks. Please follow-up with urology as directed. Return to the hospital if you experience any of the following: Fever of 101 F, uncontrolled pain, persistent nausea with vomiting, inability to urinate, chest pain, shortness of breath, passing out, confusion, or any other symptoms concerning for you. It was a pleasure taking care of you while you were in the hospital! Addtl Ladle Liner Provider Instructions: From Urology: Due to the stone/UTI. Please report back to the ER: Fever of 101F or higher Pain that is not controlled with medicine Inability to urinate The urology office will call you within a couple days of discharge to arrange an outpatient office visit. If you have not heard from us after 2 days, you can call the office at [phone]. Pending Studies at Discharge: Yes Studies:: Urine culture, blood cultures Stand-Alone Forms: [facility] Mynew[facility], Smoking Cessation Medications and DC Order Prescriptions: New ciprofloxacin HCl 500 mg tablet 500 mg PO BID Qty: 14 0RF Discharge Orders: Discharge Order (Routine); Ordered 07/30/24 Ordered By: Cheryl Majano Admission Data Admit Date/Time: 07/30/24 04:12 Attending Provider: Yoli Wilson Admit Provider: Mala Mendieta Primary Care Provider: Jovan Almeida III Other Providers: Mala Mendieta; Yevgeniy White Other Interventions: Discharge Summary Assessment (RN) Last Done: 07/30/24 11:57 Hospital Stay Data Consultations 07/30/24 03:43 ED Decision to Admit Stat 07/30/24 03:51 Consult Urology Routine Diagnostic Imagining Performed 07/30/24 00:11 CT abd pelvis IV con only Stat Pending Results Patient Have Any Pending Studies at Discharge: Yes Discharge Instructions Given to Patient (Per Discharging Provider) Melody, You were admitted to the hospital due to right sided ureteral stone causing moderate hydroureteronephrosis (swelling of your ureter/kidney) and left-sided kidney stones. Your urinalysis was suggestive of a UTI. An x-ray from this morning suggests you passed the right sided ureteral stone. You were treated in the hospital with IV antibiotics for the UTI and will continue taking oral antibiotics at home. Take ciprofloxacin (oral antibiotic) 500 mg twice daily x 7 days. Start taking this antibiotic this evening 07/30. This is to treat your UTI. Is important to complete this antibiotic course even if you feel better. Not finishing your antibiotics can result in the infection returning in/or can make future infections harder to treat. Please follow-up with your PCP in 1-2 weeks. Please follow-up with urology as directed. Return to the hospital if you experience any of the following: Fever of 101 F, uncontrolled pain, persistent nausea with vomiting, inability to urinate, chest pain, shortness of breath, passing out, confusion, or any other symptoms concerning for you. It was a pleasure taking care of you while you were in the hospital! Supervising Physician Co-Signing Physician Notes ARELY Supervision Note: I did not personally see or examine the patient today, but I verified all sharp points of ARELY Majano's assessment and plan with the following exceptions/additions: None Total Time Total Time Spent Total Time Spent (In Minutes): Greater than 30 minutes spent completing this discharge process including direct patient care, medication reconciliation, documentation, review of labs and images, and coordination of care. Coding Level of Care Code 90827 INP/OBS DISCH >30 MIN Diagnoses Nephrolithiasis N20.0 Ureterolithiasis N20.1 Pyelonephritis N12 UTI (urinary tract infection) N39.0 Leukocytosis D72.829
== END 2024-07-30 12:17 | disposition home or self-care (01) ==
LOC: ED 23:47 → EDINP 23:47 → SUATTDRO 07-30 04:12 → 2N 07-30 08:39